=== PATIENT | male | born 1970 | race Caucasian/White ===

== ENCOUNTER → 2020-10-26 | Outpatient (CLI) | payer BC ==
--- NOTE | 2020-10-26 10:59 | XR ---
EXAMINATION TYPE: XR cervical spine comp DATE OF EXAM: 10/26/2020 COMPARISON: None. HISTORY: Neck pain for 6 months. TECHNIQUE: 5 x-rays of the cervical spine. FINDINGS: There is straightening of the cervical spine. Vertebral body heights and alignment are within normal limits. Posterior elements are intact. Prevertebral soft tissues within normal limits. Open mouth odo ntoid view is not well is limited. Oblique views demonstrate no significant neural foraminal encroachment. IMPRESSION: Straightening of the cervical spine. No fracture or subluxation. No significant degenerative disease.
== END | disposition home or self-care (01) ==
LOC: RADXRYALE 10:24
PROVIDERS: ATTEND Physician Assistant Medical
DX: M54.2 Cervicalgia (principal)
CPT/HCPCS: 72050